=== PATIENT | female | born 1965 | race Caucasian/White ===

== ENCOUNTER 2016-12-07 21:50 | Day surgery (SDC) | payer OTHER ==
[~2016-12-07] VITALS: Ht 152.4 cm; Wt 104.5 kg
[~2016-12-07 21:50] MED LIST: BLOOD PRESSURE MED; CEPHALEXIN500 M1 PO; EXCEDRIN PM 5001 CAP PO; GLUCOPHAGE; LISINOPRIL2.5 MG PO
[2016-12-07] MEDS ORDERED: GLUCOPHAGE500 MG/TAB PO (22:08)
[2016-12-07] MEDS ORDERED: FARXIGA10 PO (22:10)
[2016-12-07] MEDS ORDERED: GLUCOTROL10 MG PO (22:10)
[2016-12-07] MEDS ORDERED: NEURONTIN300 MG/CAP PO (22:11)
[2016-12-07] MEDS ORDERED: PRINZIDE 25 MG-1 TAB PO (22:11)
[2016-12-07] MEDS ORDERED: ZANTAC 150MG T150 MG PO (22:12)
[2016-12-07] MEDS ORDERED: SENOKOT S 50 MG1 TAB PO (22:12)
[2016-12-07] MEDS ORDERED: OMEGA-31 SGL PO (22:13)
[2016-12-07] MEDS ORDERED: AMOXICILLIN 50500 MG PO (22:14)
[2016-12-07] MEDS ORDERED: MOTRIN 200200 MG/TAB PO (22:14)
[2016-12-07] MEDS ORDERED: B-12 500 MCG PO (22:15)
[2016-12-07] MEDS ORDERED: VITAMIN D31000 IU PO (22:15)
[2016-12-07] MEDS ORDERED: OMEGA-3 1000 MG1 CAP PO (22:16)
[2016-12-07] MEDS ORDERED: ALPHA LIPOIC A200 M2 PO (22:16)
[2016-12-07 22:22] VITALS: BP 127/80; PULSE 124; TEMP 98.2
[2016-12-07 22:24] VITALS: BP 135/65; PULSE 125; TEMP 98.6
[2016-12-08] VITALS (11 sets, daily range): BP systolic 100–135; BP diastolic 61–80; PULSE 86–114; TEMP 97.6–98.9
[2016-12-08] MEDS ORDERED: NORCO 325 MG-7.1 TAB PO (15:10)
== END 2016-12-08 15:35 | disposition home or self-care (01) ==
LOC: SDCO 21:50 → SURG 21:52 → SDCO 12-08 15:35
DX: K35.80 Unspecified acute appendicitis (principal); E11.9 Type 2 diabetes mellitus without complications; Z79.84 Long term (current) use of oral hypoglycemic drugs; I10 Essential (primary) hypertension
CPT/HCPCS: OP; J0330; J0694; J1100; J1885; J2270; J2370; J2405; J2704; J2710; J2765; J3010; J7030; J7120

== ENCOUNTER → 2018-06-07 | Outpatient (CLI) | payer BC ==
[~2018-06-07] MED LIST changes: +ALPHA LIPOIC A200 M2 PO; +AMOXICILLIN 50500 MG PO; +B-12 500 MCG PO; +FARXIGA10 PO; +GLUCOPHAGE500 MG/TAB PO; +GLUCOTROL10 MG PO; +MOTRIN 200200 MG/TAB PO; +NEURONTIN300 MG/CAP PO; +NORCO 325 MG-7.1 TAB PO; +OMEGA-3 1000 MG1 CAP PO; +OMEGA-31 SGL PO; +PRINZIDE 25 MG-1 TAB PO; +SENOKOT S 50 MG1 TAB PO; +VITAMIN D31000 IU PO; +ZANTAC 150MG T150 MG PO
== END ==
LOC: MC.RAD 16:47
DX: Z12.31 Encounter for screening mammogram for malignant neoplasm of breast (principal)